=== PATIENT | male | born 1970 | race Caucasian/White ===

== ENCOUNTER 2017-12-05 18:21 | Emergency (ER) | payer OTHER ==
--- NOTE | 2017-12-05 18:34 | PD ---
HPI Chief Complaint: Substance-induced psychosis Time Seen by Provider: 18:34 Travel History International Travel<30 days: No Contact w/Intl Traveler<30days: No Traveled to known affect area: No History of Present Illness HPI 47-year-old male was brought in by the police for acting psychotic and not making any sense once he got arrested and was put in the police van. As per 1 of the police officers they found a crack pipe in his possession. Patient was acting very combative. He was handcuffed. After I approached him and decided to give him some Ativan he started getting more agitated and telling the gang pusher that he think somebody gave him something that is making him behave like this. He does not know what it could be. No obvious injuries are seen. It is difficult to get any history from the patient given his degree of agitation. [facility] Past Medical History Narrative Medical List of his past medical, surgical, social and family history reviewed from the nursing note. Allergies-Medications (Allergen,Severity, Reaction): Coded Allergies: No Allergy Information Available (Unverified , 12/05/17) Comments No known drug allergies Reported Meds & Prescriptions Reported Meds & Active Scripts Active No Active Prescriptions or Reported Medications Narrative Medication List of his home medications reviewed from the nursing note Review of Systems ROS Limitations: Altered Mental Status Except as stated in HPI: all other systems reviewed are Neg Physical Exam Narrative GENERAL: Combative, handcuffed, talking and maintaining airway okay but seems agitated SKIN: Focused skin assessment warm/dry. HEAD: Atraumatic. Normocephalic. EYES: Pupils equal and round. No scleral icterus. No injection or drainage. ENT: No nasal bleeding or discharge. Mucous membranes pink and moist. NECK: Trachea midline. No JVD. CARDIOVASCULAR: Regular rate and rhythm. No murmur appreciated. RESPIRATORY: No accessory muscle use. Clear to auscultation. Breath sounds equal bilaterally. GASTROINTESTINAL: Abdomen soft, non-tender, nondistended. Hepatic and splenic margins not palpable. MUSCULOSKELETAL: No obvious deformities. No clubbing. No cyanosis. No edema. NEUROLOGICAL: Awake and alert. No obvious cranial nerve deficits. Motor grossly within normal limits. Rapid and pressured speech and agitated PSYCHIATRIC: Appropriate mood and affect; insight and judgment normal. Data Data Last Documented VS Vital Signs Date Time Temp Pulse Resp B/P (MAP) Pulse Ox O2 Delivery O2 Flow Rate FiO2 12/05/17 18:41 98.9 125 16 157/96 (116) 100 Orders Orders Lorazepam Inj (Ativan Inj) (12/05/17 18:45) Complete Blood Count With Diff (12/05/17 18:38) Comprehensive Metabolic Panel (12/05/17 18:38) Electrocardiogram (12/05/17 18:38) Psych Screen (12/05/17 18:38) Drug Screen, Random Urine (12/05/17 18:38) Alcohol (Ethanol) (12/05/17 18:38) Sodium Chlor 0.9% 1000 Ml Inj (Ns 1000 M (12/05/17 18:45) Health Information Tech / Telemetry [id number].[email or web address] (12/05/17 18:38) Lorazepam Inj (Ativan Inj) (12/05/17 18:38) Labs Laboratory Tests Test 12/05/17 18:45 White Blood Count 13.6 TH/MM3 Red Blood Count 4.32 MIL/MM3 Hemoglobin 14.0 GM/DL Hematocrit 39.6 % Mean Corpuscular Volume 91.6 FL Mean Corpuscular Hemoglobin 32.4 PG Mean Corpuscular Hemoglobin Concent 35.4 % Red Cell Distribution Width 12.6 % Platelet Count 242 TH/MM3 Mean Platelet Volume 9.1 FL Neutrophils (%) (Auto) 82.5 % Lymphocytes (%) (Auto) 11.3 % Monocytes (%) (Auto) 5.0 % Eosinophils (%) (Auto) 0.5 % Basophils (%) (Auto) 0.7 % Neutrophils # (Auto) 11.2 TH/MM3 Lymphocytes # (Auto) 1.5 TH/MM3 Monocytes # (Auto) 0.7 TH/MM3 Eosinophils # (Auto) 0.1 TH/MM3 Basophils # (Auto) 0.1 TH/MM3 CBC Comment DIFF FINAL Differential Comment Blood Urea Nitrogen 25 MG/DL Creatinine 1.12 MG/DL Random Glucose 91 MG/DL Total Protein 7.9 GM/DL Albumin 3.6 GM/DL Calcium Level 8.8 MG/DL Alkaline Phosphatase 73 U/L Aspartate Amino Transf (AST/SGOT) 29 U/L Alanine Aminotransferase (ALT/SGPT) 36 U/L Total Bilirubin 0.2 MG/DL Sodium Level 141 MEQ/L Potassium Level 3.9 MEQ/L Chloride Level 108 MEQ/L Carbon Dioxide Level 25.7 MEQ/L Anion Gap 7 MEQ/L Estimat Glomerular Filtration Rate 71 ML/MIN Ethyl Alcohol Level LESS THAN 3 MG/DL MDM Medical Decision Making Medical Screen Exam Complete: Yes Emergency Medical Condition: Yes Medical Record Reviewed: Yes Interpretation(s) Twelve-lead EKG was reviewed by me. Normal sinus rhythm, normal axis, nonspecific ST-T wave changes. Heart rate of 78 bpm. Differential Diagnosis Drug-induced psychosis, under police custody Narrative Course 7:43 PM I just spoke with the officer who initially made the rest and he told me that patient was absolutely fine up until he was taken to the car and was told that he would be going to the senior care and that is when he started acting like this. A crack pipe fell out of his pocket into the back of the car seat. They did not really find him in possession with any drugs as per the police officer booking. CBC is back and has some leukocytosis which could be explained by stress induced from the agitation and psychosis. Chemistries back and within acceptable limits. Alcohol is 0. Patient was initially given 2 mg of Ativan since which he has come down. Patient will be taken back by the police to the senior care. I am comfortable discharging him at this point. Procedures EKG Prior to Arrival: No Diagnosis Primary Impression: Anxiety Additional Impression: Possible substance-induced psychosis Referrals: Primary Care Physician Additional Instructions: Return to the ER if condition worsens or any other new concerns. Scripts No Active Prescriptions or Reported Meds Disposition: 01 DISCHARGE HOME Condition: Stable Wendi Leonard MD Dec 05, 2017 18:34
[2017-12-05] MEDS ORDERED: LORazepam 2 MG/ML VIAL ONE (18:38)
[2017-12-05 18:41] VITALS: BP 157/96; PULSE 125; RESP 16; TEMP 98.9; O2SAT 100
[2017-12-05] MEDS ORDERED: SODIUM CHLOR 0.9% 1000 ML INJ 1,000 ML IV ONE (18:45)
[2017-12-05] MEDS ORDERED: LORazepam 2 MG/ML VIAL IV PUSH ONE (18:45)
[2017-12-05 19:10] LABS: AUTOMATED NEUTROPHIL # 11.2 TH/MM3 (1.8-7.7); BASOPHIL # 0.1 TH/MM3 (0-0.2); BASOPHIL % 0.7 % (0.0-2.0); EOSINOPHIL # 0.1 TH/MM3 (0-0.4); EOSINOPHIL % 0.5 % (0.0-4.0); HEMATOCRIT 39.6 % (39.0-51.0); LYMPH % 11.3 % (9.0-44.0); LYMPHOCYTE # 1.5 TH/MM3 (1.0-4.8); MEAN CELL VOLUME 91.6 FL (80.0-100.0); MEAN CORPUSCULAR HEMOGLOBIN 32.4 PG (27.0-34.0); MEAN CORPUSCULAR HGB CONC 35.4 % (32.0-36.0); MEAN PLATELET VOLUME 9.1 FL (7.0-11.0); MONOCYTE # 0.7 TH/MM3 (0-0.9); NEUT % 82.5 % (16.0-70.0); PLATELET COUNT 242 TH/MM3 (150-450); RED BLOOD COUNT 4.32 MIL/MM3 (4.50-5.90); RED CELL DISTRIBUTION WIDTH 12.6 % (11.6-17.2); WHITE BLOOD COUNT 13.6 TH/MM3 (4.0-11.0)
[2017-12-05 19:34] LABS: ALBUMIN 3.6 GM/DL (3.4-5.0); AST (GOT) 29 U/L (15-37); BICARBONATE 25.7 MEQ/L (21.0-32.0); BLOOD UREA NITROGEN 25 MG/DL (7-18); CALCIUM 8.8 MG/DL (8.5-10.1); CHLORIDE 108 MEQ/L (98-107); CREATININE 1.12 MG/DL (0.60-1.30); GLOMERULAR FILTRATION RATE 71 ML/MIN (>89); GLUCOSE,RANDOM 91 MG/DL (74-106); SODIUM (NA) 141 MEQ/L (136-145)
[2017-12-05 19:37] LABS: ALKALINE PHOSPHATASE 73 U/L (45-117); ALT (GPT) 36 U/L (12-78); TOTAL BILIRUBIN ADULT 0.2 MG/DL (0.2-1.0); TOTAL PROTEIN 7.9 GM/DL (6.4-8.2)
[2017-12-05 20:03] VITALS: BP 133/86; PULSE 88; RESP 16; O2SAT 98
--- NOTE | 2017-12-06 21:31 | EKG ---
Date Performed: 12/05/2017 Time Performed: 19:23:08 PTAGE: 47 years EKG: Sinus rhythm WITH SINUS ARRHYTHMIA NORMAL ECG NO PREVIOUS TRACING DOCTOR: Iraj Neil Interpretating Date/Time 12/06/2017 21:30:22
== END 2017-12-05 20:40 | disposition home or self-care (01) ==
LOC: NEPD 18:21
DX: F41.9 Anxiety disorder, unspecified (principal); D72.829 Elevated white blood cell count, unspecified
CPT/HCPCS: 80053; 80307; 85025; 93005; 96374; 99284; J2060; J7030